=== PATIENT | female | born 1980 | race Caucasian/White ===

== ENCOUNTER 2019-11-27 16:56 | Emergency (ER) | payer MEDICARE ==
[~2019-11-27] VITALS: Ht 162.6 cm; Wt 106.0 kg
--- NOTE | 2019-11-27 17:51 | PHYS DOC ---
Past History Past Medical History: Diabetes, Other Additional Past Medical Histor: HLD, multiple groin abcesses Past Surgical History: Other Additional Past Surgical Histo: I and D groin Alcohol Use: Rarely General Adult EDM: Chief Complaint: ABSCESS HPI: HPI: ".. I got this abscess here on my lower abd.. I ve tried to drain it twice.. but is is still there...I have had it there before... Its making my sugars go up...." Patient is a 39 year old female who presents with above hx of an abscess Rt. lower abd. Pt. has a 3 x 3 cm abscess with old scar at same location. Pt. has had repeat I and D of site. Pt. denies any history of immunosuppression. Patient denies any specific ill contacts. No recent travel outside the [place] area. Patient does have history of diabetes. Review of Systems: Review of Systems: Constitutional: Denies fever or chills Eyes: Denies change in visual acuity HENT: Denies nasal congestion or sore throat Respiratory: Denies cough or shortness of breath Cardiovascular: Denies chest pain or edema GI: Denies abdominal pain, nausea, vomiting, bloody stools or diarrhea : Denies dysuria Musculoskeletal: Denies back pain or joint pain Integument: Denies rash Neurologic: Denies headache, focal weakness or sensory changes Endocrine: Denies polyuria or polydipsia Lymphatic: Denies swollen glands Psychiatric: Denies depression or anxiety Heart Score: Risk Factors: Risk Factors: DM, Current or recent (<one month) smoker, HTN, HLP, family history of CAD, obesity. Risk Scores: Score 0 - 3: 2.5% MACE over next 6 weeks - Discharge Home Score 4 - 6: 20.3% MACE over next 6 weeks - Admit for Clinical Observation Score 7 - 10: 72.7% MACE over next 6 weeks - Early Invasive Strategies Family History: Family History: DM Current Medications: Current Meds: See Nurse for Home Meds. Allergies: Allergies: Allergies Coded Allergies Type Severity Reaction Last Updated Verified Penicillins Allergy Mild Rash 11/27/19 Yes Sulfa (Sulfonamide Antibiotics) Allergy Mild Rash 11/27/19 Yes Physical Exam: PE: Constitutional: moderate acute distress, non-toxic appearance. [] HENT: Normocephalic, atraumatic, bilateral external ears normal, oropharynx moist, no oral exudates, nose normal. [] Eyes: PERRLA, EOMI, conjunctiva normal, no discharge. [] Neck: Normal range of motion, no tenderness, supple, no stridor. [] Cardiovascular:Heart rate regular rhythm, no murmur [] Lungs & Thorax: Bilateral breath sounds clear to auscultation [] Abdomen: Bowel sounds normal, soft, right lower quadrant skin abscess and tenderness, no masses, no pulsatile masses. [] Skin: Warm, dry, no erythema, no rash. [] Back: No tenderness, no CVA tenderness. [] Extremities: No tenderness, no cyanosis, no clubbing, ROM intact, no edema. [] Neurologic: Alert and oriented X 3, normal motor function, normal sensory funct ion, no focal deficits noted. [] Psychologic: Affect anxious, judgement normal, mood normal. [] Current Patient Data: Vital Signs: Vital Signs Date Time Temp Pulse Resp B/P (MAP) Pulse Ox O2 Delivery O2 Flow Rate FiO2 11/27/19 17:25 98.2 86 18 150/84 (106) 100 Room Air EKG: EKG: [] Radiology/Procedures: Radiology/Procedures: [] Course & Med Decision Making: Course & Med Decision Making Pertinent Labs and Imaging studies reviewed. (See chart for details) Procedure: Incision and Drainage. - Prep with Betadine. Stick with 15 blade and remove 10 cc of purulent pus.. Septations broken down with Q-tip. Pt. to take Clindamycin 300 three times a day, with Flagyl 500 three times a day. Tylenol and Ibuprofen for pain. Irrigated abscess with warm normal saline 4 x day. Polysporin topically after irrigation. Vicoprofen for marked pain up 4 x day. Follow up with primary. Monitor site closely. May need full surgical excision of site. Must get glucose down to increase healing. Return if any concerns. Impression: 1. Abscess/ Cellulitis 2. DM [] Kelli Disclaimer: Kelli Disclaimer: This electronic medical record was generated, in whole or in part, using a voice recognition dictation system. Departure Departure: Disposition: 01 HOME/RESIDENCE PRIOR TO ADM Condition: STABLE Referrals: JIGNESH SANCHEZ MD (PCP) Scripts Clindamycin Hcl (CLINDAMYCIN HCL) 300 Mg Capsule 300 MG PO TID for abscess for 10 Days, #30 CAP Prov: MARCK SHAFFER MD 11/27/19 Metronidazole (FLAGYL) 500 Mg Tablet 500 MG PO TID for abscess for 10 Days, #30 TAB Prov: MARCK SHAFFER MD 11/27/19 Hydrocodone/Ibuprofen (HYDROCODONE-IBUPROFEN 7.5-200 ) 1 Each Tablet 1 TAB PO PRN Q6HRS PRN for PAIN, #30 TAB 0 Refills Prov: MARCK SHAFFER MD 11/27/19 Justification of Admission: Justification of Admission: Justification of Admission Dx: N/A Dragruperto Disclaimer This chart was dictated in whole or in part using Voice Recognition software in a busy, high-work load, and often noisy Emergency Department environment. It may contain unintended and wholly unrecognized errors or omissions. MARCK SHAFFER MD Nov 27, 2019 17:50
[2019-11-27] MEDS ORDERED: MORPHINE SULFATE 10 MG/ML SYRINGE. ONE (17:55)
[2019-11-27] MEDS ORDERED: cefTRIAXone IM 1 GM VIAL IM ONE (18:00)
[2019-11-27] MEDS ORDERED: CLINDAMYCIN HCL 150 MG CAPSULE PO ONE (18:00)
[2019-11-27] MEDS ORDERED: metroNIDAZOLE 500 MG TABLET PO ONE (18:00)
[2019-11-27] MEDS ORDERED: METR500T PO (18:13)
[2019-11-27] MEDS ORDERED: CLIN300C8 PO (18:13)
[2019-11-27] MEDS ORDERED: HYDR-1179 PO (18:13)
[2019-11-27] MEDS ORDERED: ONDANSETRON ODT 4 MG TAB.RAPDIS ONE (18:14)
[2019-11-27] MEDS ORDERED: ONDANSETRON ODT 4 MG TAB.RAPDIS PO ONE (18:15)
[2019-11-27] MEDS ORDERED: MORPHINE SULFATE 10 MG/ML SYRINGE. SQ ONE (18:30)
[2019-11-27 18:40] VITALS: BP 137/87
== END 2019-11-27 18:51 | disposition home or self-care (01) ==
LOC: ER 16:56
DX: L02.211 Cutaneous abscess of abdominal wall (principal); E11.9 Type 2 diabetes mellitus without complications; Z88.0 Allergy status to penicillin; Z88.2 Allergy status to sulfonamides
CPT/HCPCS: 10060; 96372; 99284; J0696; J2270; Q0162

== ENCOUNTER 2020-11-06 19:31 | Emergency (ER) | payer MEDICARE ==
[~2020-11-06] VITALS: Ht 172.7 cm; Wt 97.1 kg
[~2020-11-06 19:31] MED LIST: CLIN300C9 PO; HYDR-1179 PO; METR500T PO
[2020-11-06] MEDS ORDERED: KETOROLAC 60 MG/2 ML VIAL. IM ONE (20:30)
[2020-11-06] MEDS ORDERED: ORPHENADRINE CITRATE 60 MG/2 ML VIAL. IM ONE (20:30)
[2020-11-06] MEDS ORDERED: HYDR-1179 PO (21:11)
[2020-11-06] MEDS ORDERED: MORPHINE SULFATE 10 MG/ML SYRINGE. SQ ONE (21:15)
--- NOTE | 2020-11-06 21:17 | PHYS DOC ---
Past History Past Medical History: Diabetes, Other Additional Past Medical Histor: HLD, multiple groin abcesses, staph infection Past Surgical History: Other Additional Past Surgical Histo: I and D groin Alcohol Use: Rarely General Adult EDM: Chief Complaint: UPPER EXTREMITY PAIN HPI: HPI: ".. I was mowing the grass yesterday.. it was too wet.. and too high... and I was using a push mower.. and now my muscle are all inflamed... I just over did...".. " I just need some better pain coverage...for the muscle spasms.." Patient is a 40 year old female who presents with trapezius, mid back pain and muscle spasm after mowing the yard yesterday. Patient pain is primary in right trapezius. Does have obvious muscle spasms at this location. No history of trauma other than the overuse during mowing the yard yesterday. Patient denies any chest pain or dyspnea. Patient denies any recent travel outside the [facility] area. Patient denies any specific ill contacts. Patient denies any history of immunosuppression. Patient normally follows with .. Review of Systems: Review of Systems: Constitutional: Denies fever or chills Eyes: Denies change in visual acuity HENT: Denies nasal congestion or sore throat Respiratory: Denies cough or shortness of breath Cardiovascular: Denies chest pain or edema GI: Denies abdominal pain, nausea, vomiting, bloody stools or diarrhea : Denies dysuria Musculoskeletal: Complains of trapezius and mid back pain and muscle spasms . Integument: Denies rash Neurologic: Denies headache, focal weakness or sensory changes Endocrine: Denies polyuria or polydipsia Lymphatic: Denies swollen glands Psychiatric: Denies depression or anxiety Family History: Family History: Noncontributory to presentation Current Medications: Current Meds: Current Medications Medications (Trade) Dose Ordered Sig/Alicia Start Time Stop Time Status Last Admin Dose Admin Ketorolac Tromethamine (Toradol Im) 60 mg 1X ONCE 11/06/20 20:30 11/06/20 20:33 DC Morphine Sulfate (Morphine 10mg Syringe) 10 mg 1X ONCE 11/06/20 21:15 11/06/20 21:16 Orphenadrine Citrate (Norflex) 60 mg 1X ONCE 11/06/20 20:30 11/06/20 20:33 DC Allergies: Allergies: Allergies Coded Allergies Type Severity Reaction Last Updated Verified Penicillins Allergy Mild Rash 11/06/20 Yes Sulfa (Sulfonamide Antibiotics) Allergy Mild Rash 11/06/20 Yes Physical Exam: PE: Constitutional: Moderate acute distress, non-toxic appearance. [] HENT: Normocephalic, atraumatic, bilateral external ears normal, oropharynx m oist, no oral exudates, nose normal. [] Eyes: PERRLA, EOMI, conjunctiva normal, no discharge. [] Neck: Normal range of motion, no tenderness, supple, no stridor. [] Cardiovascular:Heart rate regular rhythm, no murmur []. The monitor shows a normal sinus rhythm. Lungs & Thorax: Bilateral breath sounds equal apex on auscultation [] Abdomen: Bowel sounds normal, soft, no tenderness, no masses, no pulsatile masses. Old scars Skin: Warm, dry, no erythema, no rash. [] Back: Muscle spasms in right trapezius generalized muscle tenderness on palpation of bilateral trapezius and mid back area. No midline tenderness, no CVA tenderness. [] Extremities: No tenderness, no cyanosis, no clubbing, ROM intact, no edema. No cording appreciated Neurologic: Alert and oriented X 3, normal motor function, normal sensory function, no focal deficits noted. [] DTRs +2 patella and brachial. Psychologic: Affect anxious, judgement normal, mood normal. [] Current Patient Data: Vital Signs: Vital Signs Date Time Temp Pulse Resp B/P (MAP) Pulse Ox O2 Delivery O2 Flow Rate FiO2 11/06/20 19:49 99.3 113 18 123/90 (101) 93 EKG: EKG: Declined by patient [] Radiology/Procedures: Radiology/Procedures: Declined by patient [] Heart Score: C/O Chest Pain: N/A Risk Factors: Risk Factors: DM, Current or recent (<one month) smoker, HTN, HLP, family history of CAD, obesity. Risk Scores: Score 0 - 3: 2.5% MACE over next 6 weeks - Discharge Home Score 4 - 6: 20.3% MACE over next 6 weeks - Admit for Clinical Observation Score 7 - 10: 72.7% MACE over next 6 weeks - Early Invasive Strategies Course & Med Decision Making: Course & Med Decision Making Pertinent Labs and Imaging studies reviewed. (See chart for details) Patient declined labs. Patient requests to be treated clinically Patient use ice packs at least 4 times a day and gentle massage. After 3 days may use moist heat. Take Tylenol and ibuprofen for pain. For marked pain may take Vicoprofen up to 4 times a day. Return if any concerns. Follow-up primary care. Impression: 1. Muscle Spasm 2. Overuse Syndrome [] Kelli Disclaimer: Kelli Disclaimer: This electronic medical record was generated, in whole or in part, using a voice recognition dictation system. Departure Departure: Impression: Primary Impression: Muscle spasm Disposition: HOME / SELF CARE / HOMELESS Condition: GUARDED Patient Instructions: Muscle Strain, [id number], Musculoskeletal Pain Additional Instructions: Ice packs as needed. Massage. Take meds as previously directed. May ad Vicoprofen up 4 x day. Follow up with primary. Return if any concerns. Scripts Hydrocodone/Ibuprofen (HYDROCODONE-IBUPROFEN 7.5-200 ) 1 Each Tablet 1 TAB PO PRN Q6HRS PRN for PAIN, #30 TAB 0 Refills Prov: MARCK SHAFFER MD 11/06/20 Kelli Disclaimer This chart was dictated in whole or in part using Voice Recognition software in a busy, high-work load, and often noisy Emergency Department environment. It may contain unintended and wholly unrecognized errors or omissions. MARCK SHAFFER MD November 06, 2020 21:17
[2020-11-06 21:45] VITALS: BP 102/56
== END 2020-11-06 21:45 | disposition home or self-care (01) ==
LOC: ER 19:31
DX: M70.88 Other soft tissue disorders related to use, overuse and pressure other site (principal); M62.830 Muscle spasm of back; M54.89 Other dorsalgia; E11.9 Type 2 diabetes mellitus without complications; E78.5 Hyperlipidemia, unspecified; Z88.0 Allergy status to penicillin; Z88.2 Allergy status to sulfonamides; Y93.89 Activity, other specified
CPT/HCPCS: 96372; 99284; J1885; J2270; J2360

== ENCOUNTER 2020-11-07 15:26 | Inpatient (IN) | payer MEDICARE ==
[~2020-11-07] VITALS: Ht 172.7 cm; Wt 91.8 kg
[2020-11-07] MEDS ORDERED: diazePAM 5 MG TABLET. PO ONE (15:45)
[2020-11-07] MEDS ORDERED: methylPREDNISolone ACETATE 80 MG/ML VIAL. IM ONE (15:45)
[2020-11-07] MEDS ORDERED: HYDROmorphone PF 1 MG/ML DISP.SYRIN IM ONE (15:45)
--- NOTE | 2020-11-07 16:02 | PHYS DOC ---
Past History Past Medical History: Anxiety, Diabetes, Other Additional Past Medical Histor: HLD, multiple groin abcesses, staph infection (ELÍAS RENEE APRN) Past Surgical History: Other Additional Past Surgical Histo: I and D groin (ELÍAS RENEE APRN) Alcohol Use: Rarely (ELÍAS RENEE APRN) Adult General Chief Complaint Chief Complaint: UPPER EXTREMITY PAIN HPI HPI Patient is a 40-year-old female presents to the emergency department complaining of severe trapezius, mid back pain and muscle spasms ongoing from yesterday. Patient states she was seen here last night and was treated with pain medications and muscle relaxers which helped some was sent home with a prescription for pain medications, states she has been taking them as directed and her pain has returned to a 10/10 pain on a 1-10 pain scale. Patient reports her pain exacerbated while mowing the lawn yesterday noting muscle spasms severe in the right upper trapezius area that has now traveled to most of her mid and upper back. Patient states she has not had this happen to her before. Patient denies history of trauma "states all she did was mowing the lawn yesterday. Pat samy denies loss of bowel or bladder control, denies any numbness or tingling to her buttocks or perineal area. Patient also complains of a spider bite to her buttocks on the lower left from a week ago stating she seen urgent care yesterday prior to arrival to the ER for her back spasms and was given 10 mg Flexeril prescription and a prescription for Bactrim DS, patient states they did not drain her spider bite abscess, and fears it may need drained today. (ELÍAS RENEE APRN) Review of Systems Review of Systems 14 body systems of review of systems have been reviewed. See HPI for pertinent positives and negative responses, otherwise all other systems are negative, nonpertinent or noncontributory. (ELÍAS RENEE APRN) Current Medications Current Medications Current Medications Medications (Trade) Dose Ordered Sig/Alicia Start Time Stop Time Status Last Admin Dose Admin Diazepam (Valium) 10 mg 1X ONCE 11/07/20 15:45 11/07/20 15:46 UNV Hydromorphone HCl (Dilaudid) 1 mg 1X ONCE 11/07/20 15:45 11/07/20 15:46 UNV Methylprednisolone Acetate (DEPO-Medrol IM) 80 mg 1X ONCE 11/07/20 15:45 11/07/20 15:46 UNV (ELÍAS RENEE APRN) Allergies Allergies Allergies Coded Allergies Type Severity Reaction Last Updated Verified Penicillins Allergy Mild Rash 11/06/20 Yes Sulfa (Sulfonamide Antibiotics) Allergy Mild Rash 11/06/20 Yes (ELÍAS RENEE APRN) Physical Exam Physical Exam Constitutional: Well developed, well nourished, patient in moderate acute distress rocking back and forth in bed during examination, non-toxic appearance. HENT: Normocephalic, atraumatic. Eyes: Conjunctiva normal, no discharge, patient tracking normally Neck: Normal range of motion, no tenderness, supple, no stridor. No meningismus signs, no nuchal rigidity appreciated. Cardiovascular:Heart rate regular rhythm, no murmur, heart sounds S1-S2 to auscultation. Lungs & Thorax: Bilateral diminished all lung brock, tachypneic. Skin: Warm, diaphoretic, no erythema, no rash. 2 cm in diameter erythematous induration of left lower buttock with 1 cm in diameter dark skin lesion nondraining Back: No CVA tenderness of the left or right, muscle tenderness to the muscular structures of the thoracic area of back up to bilateral trapezius muscles with marked muscle spasm in the right trapezius area, no midline spinal tenderness, no crepitus appreciated, no bruising or areas of ecchymosis appreciated, skin of the back is intact. Extremities: No tenderness, no cyanosis, no clubbing, ROM intact, no edema. Except for right upper extremity forearm and hand swollen with red nonraised erythematous rash to forearm, there is no lymphangitis appreciated, patient states this has been that way for a long time, unable to discern a certain time period Of the year it started. Neurologic: Alert and oriented X 3, normal motor function, normal sensory function, no focal deficits noted. Psychologic: Affect normal, judgement normal, mood normal. (ELÍAS RENEE APRN) Physical Exam Constitutional: Well developed, well nourished, uncomfortable, non-toxic appearance HENT: Normocephalic, atraumatic Eyes: Conjunctiva normal, no discharge Neck: Normal range of motion, supple, no meningeal signs Lungs & Thorax: No respiratory distress, equal chest rise and fall Skin: Warm, dry, no erythema, no rash Extremities: Right forearm mild edema with erythema noted to anterior aspect, tenderness with any palpation, increased warmth noted, no fluctuance appreciated Neurologic: Alert and oriented X 3, no focal deficits noted Psychologic: Affect normal, judgment normal (ELÍAS MARIEE DO) Current Patient Data Vital Signs Vital Signs Date Time Temp Pulse Resp B/P (MAP) Pulse Ox O2 Delivery O2 Flow Rate FiO2 11/07/20 15:28 98.0 131 20 148/84 (105) 98 Room Air (ELÍAS RENEE APRN) EKG EKG EKG performed at 1641 by house respiratory therapist shows a sinus tachycardia without other ectopy heart rate 137 bpm MA interval 0.132, QTc interval 0.442, no acute STEMI, no ACS, no acute ischemia appreciated, EKG interpreted by ED attending physician Dr. Mariee. (ELÍAS RENEE APRN) Radiology/Procedures Radiology/Procedures PATIENT: TOPHER BARON ACCOUNT: [id number] : 1980 LOCATION: ER AGE: 40 SEX: F EXAM STATUS: REG ER ORD. PHYSICIAN: ELÍAS RENEE APRN REASON: ELEVATED DDIMER, SHORT OF BREATH PROCEDURE: CT ANGIOGRAPHY CHEST CTA CHEST History: Shortness of breath Technique: CT of the chest was performed with intravenous contrast. PE protocol. Maximum intensity projection coronal and sagittal reconstructions were performed. Exposure: One or more of the following individualized dose reduction techniques were utilized for this examination: 1. Automated exposure control 2. Adjustment of the mA and/or kV according to patient size 3. Use of iterative reconstruction technique. Comparison: None Findings: Chest: Degraded evaluation of pulmonary arteries due to contrast bolus timing. No definite central pulmonary embolus. Evaluation for segmental and subsegmental pulmonary emboli is degraded. No aortic aneurysm or dissection. Small mediastinal lymph nodes. Asymmetric right-sided septal thickening with groundglass opacities. Scattered linear atelectasis bilaterally. Right upper lobe bilobed nodular opacity measures 1.4 x 0.7 cm (series 4 image 40). 2 mm right lower lobe pulmonary nodule (image 69). Upper abdomen: Hepatomegaly. Bones: No pathologic osseous lesions. Impression: 1. Degraded evaluation of the pulmonary arteries due to contrast bolus timing. If persistent clinical concern, recommend repeat imaging or VQ scan to further assess. 2. Right-sided septal thickening with ground glass opacities, may represent asymmetric pulmonary edema or infection. Recommend follow-up to ensure resolutio n. 3. Bilobed right upper lobe nodular opacity. Recommend attention on follow-up. Electronically signed by: Hawk Schmitz DO (11/07/2020 6:24 PM) [facility] DICTATED AND SIGNED BY: HAWK SCHMITZ DO DATE: 11/07/201815 CC: ELÍAS RENEE APRN; JIGNESH SANCHEZ MD; ELÍAS MARIEE DO ~MTH0 0 PATIENT: TOPHER BARON ACCOUNT: [id number] : 1980 LOCATION: ER AGE: 40 SEX: F EXAM STATUS: REG ER ORD. PHYSICIAN: ELÍAS RENEE APRN REASON: SHORT OF BREATH PROCEDURE: CHEST PA & LATERAL EXAM: Chest, 2 views. HISTORY: Short of breath. COMPARISON: None. FINDINGS: 2 frontal views and a lateral view of the chest are obtained. The initial image demonstrates decreased lung volumes with associated increased interstitial opacity likely due to atelectasis and vascular crowding. The second image demonstrates improved aeration with suspected focal infiltrate or scarring within the right upper lobe. There is elevation of the right hemidiaphragm. The heart is normal in size. There is no consolidation, pleural effusion or pneumothorax. IMPRESSION: 1. Suspected focal infiltrate or scarring within the right upper lobe. Follow-up to confirm resolution or stability. 2. Mild elevation of the right hemidiaphragm. Electronically signed by: Yudith Richard MD (11/07/2020 5:03 PM) [id number] DICTATED AND SIGNED BY: YUDITH RICHARD MD DATE: 11/07/20 170 CC: ELÍAS RENEE APRN; JIGNESH SANCHEZ MD ~MTH0 0 (ELÍAS RENEE APRN) Heart Score C/O Chest Pain: No Risk Factors: Risk Factors: DM, Current or recent (<one month) smoker, HTN, HLP, family history of CAD, obesity. Risk Scores: Risk Factors: DM, Current or recent (<one month) smoker, HTN, HLP, family hist ory of CAD, obesity. (ELÍAS RENEE APRN) Course & Med Decision Making Course & Med Decision Making Pertinent Labs and Imaging studies reviewed. (See chart for details) 40-year-old female presents emergency department with chief complaint mid upper back pain since mowing the lawn Friday. Patient was seen yesterday and treated with pain medications and muscle relaxers, patient states that she felt okay when she went home, is back for evaluation of return of acute pain. Physical examination concerning for respiratory process, patient is diaphoretic, patient states that she has been this way for some time now stating that her sweatiness comes and goes, patient states that her breathing problem is because she hurts so bad in her upper back. Patient states "it is not from a lungs "offered imaging and labs, patient refused at this time. Patient states she just wants pain medications. Patient is tachycardic, however patient does complain of acute pain with injury and muscle spasm of the upper back, will give pain medication and monitor vital signs. Patient given Valium p.o., Dilaudid IM, Depo-Medrol 80 mg IM. After period of time reevaluation of the patient, patient is still tachycardic, patient states her pain is down to about 8/10. Discussed with patient concerns about remaining tachycardia after given pain medications and having some pain control, patient is to cardiorespiratory work-up with lab draw. Discussed with patient finding of elevated blood sugar greater than 500, patient states "I am a bad bad diabetic, I am supposed to take two different types of insulins but I just do not "discussed with patient will give a liter of normal saline, 10 units regular insulin IV, patient complaining of anxiety problems, will give 1 mg Ativan IV. Upon reevaluation of the patient, patient remains tachycardic, most likely related to dehydration, will order an additional liter of normal saline. Patient is D-dimer elevated, will order CT angio chest, patient now reveals that her left arm suddenly became swollen while she was mowing the lawn, patient states that she wants pain control for her upper back and not to have things focused on other parts of her body. Related to patient's presentation and not being forthright of symptoms, physical presentation, vital signs, and lab work returning showing infectious process, a skin assessment performed with TOMMY parry was done, there were no target spot type rashes on body. The abscess lesion on left buttocks consistent with brown recluse type spider bite. There is no fluctuance to the erythematous area, there was no drainage from the central eschar colored 1 cm central area. Patient CT angio chest concerning for atypical pneumonia, patient's lactic acid above 5, will diagnosis septic shock, patient has ready received fluid resuscitation bolus, will give 1 g of vancomycin for skin cellulitis, 2 g Rocephin IV along with 500 mg Zithromax IV for atypical pneumonia, will order Covid [address] angio results of patient presentation, however patient did have COVID-19 vaccine in August 2 dose Pfizer type. Patient's repeat bedside blood sugar 390. Discussed with patient recommended admission for ongoing evaluation and treatment of symptoms, patient is amenable to this plan. Called and discussed patient case with inpatient management physician Dr. Dave who has agreed to accept patient for full admission to the med telemetry unit diagnosis septic shock, elevated blood sugars, PUI, cellulitis, atypical pneumonia. Dr. Dave has assumed patient care at this time. (ELÍAS RENEE APRN) Course & Med Decision Making Given CT findings, cannot fully exclude COVID-19. Patient does reports COVID vaccination with Pfizer vaccination with 2nd dose received in August 2020. While COVID less likely will test given admission. COVID-19 CRITERIA: The patient was evaluated during the global COVID-19 pandemic, and that diagnosis was suspected/considered upon their initial presentation. Their evaluation, treatment and testing was consistent with current guidelines for patients who present with complaints or symptoms that may be related to COVID-19. (ELÍAS MARIEE DO) Dragon Disclaimer Dragon Disclaimer This electronic medical record was generated, in whole or in part, using a voice recognition dictation system. (ELÍAS RENEE APRN) Departure Departure: Impression: Primary Impression: Septic shock Additional Impressions: Person under investigation for COVID-19 Atypical pneumonia Cellulitis Uncontrolled diabetes mellitus Pain and swelling of right forearm Bandemia Disposition: ADMITTED INPATIENT (Admit to med telemetry unit full admission Dr. Dave.) Admitting Physician: Kolby Dave (ELÍAS RENEE APRN) Condition: GUARDED Referrals: JIGNESH SANCHEZ MD (PCP) Sepsis Assessment Date and Time of Assessment Date: November 07, 2020 Time: 19:08 (ELÍAS RENEE APRN) Fluid Challenge: Is the fluid challenge complet: Yes IBW Target Volume Used: Yes BMI > 30: Yes (ELÍAS RENEE APRN) Vital Signs Vital Signs Vital Signs Date Time Temp Pulse Resp B/P (MAP) Pulse Ox O2 Delivery O2 Flow Rate FiO2 11/07/20 18:30 126 20 95 Room Air 11/07/20 17:25 142/80 (100) 11/07/20 15:28 98.0 Temperature Source: Oral (ELÍAS RENEE APRN) Respirations Respiratory Effort: Shortness of air Respiratory Pattern: Tachypnea (ELÍAS RENEE APRN) Cardiovascular Pulse Rhythm: Irregular (TACHYCARDIA) Heart: S1 and S2 normal (ELÍAS RENEE APRN) Lung Sounds Breath Sounds: Diminished (ELÍAS RENEE APRN) Capillary Refill Capillary Refill: Rt Hand < 3 seconds (ELÍAS RENEE APRN) Peripheral Pulse Pulse Location: Radial Pulse Strength: Normal (2+) Pulse Assessment Method: Palpation (ELÍAS RENEE APRN) Integumentary Skin: Warm, Dry, Rash Skin Moisture: Diaphoretic Skin Turgor: Normal Skin Color: warm, dry, edema, erythema Fingernail Color: WNL (ELÍAS RENEE APRN) Critical Care Time Critical care time was 30 minutes which includes time at bedside, spent in discussion of patient's care with specialists and/or family members, with interpretation of laboratory and/or radiological studies and is exclusive of procedures. (ELÍAS MARIEE DO) Attending Signature Attending Signature I have personally interviewed and examined the patient. All charts, labs, and imaging studies were reviewed. I agree with the PA/TUNNEL INSPECTOR's findings, exam, and plan. (ELÍAS MARIEE DO) COVID-19 Assessment COVID-19 Patient Risks: Age 65 or older: No Sign of co-morbidity: Yes Exp to person + for COVID: No Exp to PUI: No Travel from affected area: No Lower respiratory symptoms: No Fever: No Other: Yes (ELÍAS MARIEE DO) PPE Use: Full PPE with N95 mask or PAPR: Yes (ELÍAS MARIEE DO) Problem Qualifiers Additional Impressions: Cellulitis Site of cellulitis: buttock Qualified Codes: L03.317 - Cellulitis of buttock Uncontrolled diabetes mellitus Diabetes mellitus type: type 2 Glycemic state: with hyperglycemia Qualifi ed Codes: E11.65 - Type 2 diabetes mellitus with hyperglycemia ELÍAS RENEE APRN November 07, 2020 16:02 ELÍAS MARIEE DO November 07, 2020 20:16
[2020-11-07 16:58] LABS: BASO # 0.1 x10^3/uL (0.0-0.2); BASO % 0 % (0-3); EOS % 0 % (0-3); HEMATOCRIT 47.8 % (36.0-47.0); LYMPH # 0.6 x10^3/uL (1.0-4.8); LYMPH % 3 % (24-48); MEAN CORPUSCULAR HEMOGLOBIN 32 pg (25-35); MEAN CORPUSCULAR HGB CONC 34 g/dL (31-37); MEAN CORPUSCULAR VOLUME 95 fL (79-100); MONO % 6 % (0-9); NEUT # 15.3 x10^3uL (1.8-7.7); NEUT % 91 % (31-73); PLATELET COUNT 225 x10^3/uL (140-400); RED BLOOD COUNT 5.02 x10^6/uL (3.50-5.40); RED CELL DISTRIBUTION WIDTH 12.8 % (11.5-14.5); WHITE BLOOD COUNT 16.9 x10^3/uL (4.0-11.0)
[2020-11-07] MEDS ORDERED: IV NORMAL SALINE 1,000ML 1,000 ML IV ONE ×2 (17:00→17:30)
--- NOTE | 2020-11-07 17:05 | RAD ---
EXAM: Chest, 2 views. HISTORY: Short of breath. COMPARISON: None. FINDINGS: 2 frontal views and a lateral view of the chest are obtained. The initial image demonstrate s decreased lung volumes with associated increased interstitial opacity likely due to atelectasis and vascular crowding. The second image demonstrates improved aeration with suspected focal infiltrate o r scarring within the right upper lobe. There is elevation of the right hemidiaphragm. The heart is n ormal in size. There is no consolidation, pleural effusion or pneumothorax. IMPRESSION: 1. Suspected focal infiltrate or scarring within the right upper lobe. Follow-up to confirm resolutio n or stability. 2. Mild elevation of the right hemidiaphragm. Electronically signed by: Yudith Bejarano MD (11/07/2020 5:03 PM) [id number]
--- NOTE | 2020-11-07 17:10 | EKG ---
[address] [address] Test Date: 2020-11-07 Test Time: 16:41:16 Pat Name: TOPHER BARON Department: Room: Gender: F Pulp Mixer: JENNIFER : 1980 Requested By: ELÍAS RENEE Order Number: [id number] Reading MD: Measurements Intervals Morton Rate: 137 P: -14 GA: 132 QRS: -29 QRSD: 92 T: 9 QT: 292 QTc: 442 Interpretive Statements SINUS TACHYCARDIA LEFT ATRIAL ABNORMALITY LEFTWARD AXIS R-S TRANSITION ZONE IN V LEADS DISPLACED TO THE LEFT ABNORMAL ECG RI6.02 No previous ECG available for comparison
[2020-11-07 17:24] LABS: ALBUMIN 3.5 g/dL (3.4-5.0); ALBUMIN/GLOBULIN RATIO 0.8 (1.0-1.7); CALCIUM 9.6 mg/dL (8.5-10.1); CREATININE 1.2 mg/dL (0.6-1.0); POTASSIUM 4.8 mmol/L (3.5-5.1); TOTAL BILIRUBIN 3.3 mg/dL (0.2-1.0); TOTAL PROTEIN 7.8 g/dL (6.4-8.2)
[2020-11-07] MEDS ORDERED: INSULIN REGULAR 100 UNIT/ML 3ML VIAL. IV ONE (17:30)
[2020-11-07] MEDS ORDERED: IOHEXOL 350 MG/ML 100 ML VIAL. IV ONE (18:00)
[2020-11-07] MEDS ORDERED: VANCOMYCIN PER PHARMACY MC PRN (18:15)
--- NOTE | 2020-11-07 18:26 | RAD ---
CTA CHEST History: Shortness of breath Technique: CT of the chest was performed with intravenous contrast. PE protocol. Maximum intensity pr ojection coronal and sagittal reconstructions were performed. Exposure: One or more of the following individualized dose reduction techniques were utilized for thi s examination: 1. Automated exposure control 2. Adjustment of the mA and/or kV according to patient size 3. Use of iterative reconstruction technique. Comparison: None Findings: Chest: Degraded evaluation of pulmonary arteries due to contrast bolus timing. No definite central pu lmonary embolus. Evaluation for segmental and subsegmental pulmonary emboli is degraded. No aortic an eurysm or dissection. Small mediastinal lymph nodes. Asymmetric right-sided septal thickening with groundglass opacities. Scattered linear atelectasis noris aterally. Right upper lobe bilobed nodular opacity measures 1.4 x 0.7 cm (series 4 image 40). 2 mm right lower lobe pulmonary nodule (image 69). Upper abdomen: Hepatomegaly. Bones: No pathologic osseous lesions. Impression: 1. Degraded evaluation of the pulmonary arteries due to contrast bolus timing. If persistent clinica l concern, recommend repeat imaging or VQ scan to further assess. 2. Right-sided septal thickening with ground glass opacities, may represent asymmetric pulmonary baron ma or infection. Recommend follow-up to ensure resolution. 3. Bilobed right upper lobe nodular opacity. Recommend attention on follow-up. Electronically signed by: Hawk Schmitz DO (11/07/2020 6:24 PM) [facility]
[2020-11-07] MEDS ORDERED: VANCOMYCIN 2 GM in IV NORMAL SALINE 500ML 500 ML IV ONE (18:45)
[2020-11-07] MEDS ORDERED: AZITHROMYCIN 500 MG in IV NORMAL SALINE 250ML 250 ML IV ONE (19:00)
[2020-11-07 19:01] LABS: % BANDS 24 % (0-9); % EOS 1 % (0-5); % LYMPHS 1 % (24-48); % METAS 9 % (0-0); % MONOS 7 % (0-10); % MYELOS 2 % (0-0); % SEGS 56 % (35-66)
[2020-11-07 19:06] LABS: PLT ESTIMATE ADEQUATE (ADEQUATE)
[2020-11-07] MEDS ORDERED: IV NORMAL SALINE 100ML 100 ML ONE (19:33)
[2020-11-07] MEDS ORDERED: ENOXAPARIN ** NOTE DOSE ** SYRINGE SQ ONE (20:00)
[2020-11-07] MEDS ORDERED: ONDANSETRON PF 4 MG/2 ML VIAL. IVP PRN (20:00)
[2020-11-07] MEDS ORDERED: MORPHINE SULFATE 4 MG/ML DISP.SYRIN. IVP PRN (20:00)
[2020-11-07] MEDS ORDERED: DEXTROSE 50% 25 GM / 50ML DISP.SYRIN. IV PRN (20:00)
[2020-11-07] MEDS ORDERED: MORPHINE SULFATE 10 MG/ML SYRINGE. IV ONE (20:00)
[2020-11-07] MEDS ORDERED: INSULIN GLARGINE SYRINGE. SQ SCH (21:00)
[2020-11-07 21:07] VITALS: BP 132/83
[2020-11-07] MEDS: IV NORMAL SALINE 1,000ML 1,000 ML IV SCH (21:17)
--- NOTE | 2020-11-07 22:35 | NUR ---
Pharmacy Vancomycin Dosing Note S:Consulted to monitor and dose vancomycin started 11/07/20. O:TOPHER BARON is a 40 year old F with Cellulitis, . Height: 5 feet, 8 inches Weight: 91.8 kg [place] Body Weight: Adjusted Body Weight: Dosing Weight: Actual Other Antibiotics: ROCEPHIN X1 AND ZITHROMAX IV X1 IN ED LABS: Last BUN: 11 Last Creatinine: 1.2 Creatinine Clearance: 76.69 Last WBC: 16.9 Vancomycin Dosing: Loading Dose: 2000 mg x1 Dosing Weight: Actual Target Trough: 10-20 A: Based on: Actual weight, renal function, and indication P: 1. Begin Vancomycin 1500 mg IV q12h 2. Follow up Trough level on 11/09/20 at 0530 3. Pharmacy will continue to monitor, follow and adjust therapy as needed. EBER OBRIEN, 11/07/20 [id number]
--- NOTE | 2020-11-07 23:22 | NUR ---
PT ADMITTED TO [facility] VIA EMS ACCOMPANIED BY NURSING PAPER MACHINE OPERATOR. PT WAS ASSISTED X1 TO AMBULATE FROM GURNEY TO BED. PT IS AOX4. PT WAS UNABLE TO PRODUCE HOME MEDICATION LIST. PT STATES "I GO TO [facility] AND THEY WOULD HAVE A LIST OF MY MEDS." PT HAD COMPLAINTS OF PAIN BUT SAID IT IS BETTER AFTER RECEIVING PAIN MEDICATION IN ED. POC WAS DISCUSSED W/ VERBAL UNDERSTANDING FROM PT. CALL LIGHT IN REACH WILL CONTINUE TO MONITOR.
[2020-11-07 23:31] VITALS: BP 109/69
[2020-11-08] MEDS ORDERED: INSULIN LISPRO 300 UNITS/3 ML VIAL. SQ ONE (01:30)
[2020-11-08 04:39] LABS: BILIRUBIN,URINE NEG (NEG); CLARITY,URINE CLEAR; COLOR,URINE YELLOW; GLUCOSE,URINE >=1000 mg/dL (NEG)
[2020-11-08 04:40] LABS: NITRITE,URINE NEG (NEG); RBC,URINE 0 /HPF (0-2); UROBILINOGEN,URINE 0.2 mg/dL (0.2 mg/dL); WBC,URINE 0 /HPF (0-4)
[2020-11-08 04:41] LABS: BACTERIA,URINE MOD /HPF (0-FEW); SQUAMOUS EPITHELIAL CELL,UR OCC /LPF
[2020-11-08] MEDS ORDERED: HYDROmorphone PF 2 MG/ML VIAL IVP PRN (05:00)
[2020-11-08] MEDS: IV NORMAL SALINE 1,000ML 1,000 ML IV SCH (06:00)
[2020-11-08] MEDS ORDERED: VANCOMYCIN 1.5 GM in IV NORMAL SALINE 500ML 500 ML IV SCH (06:00)
[2020-11-08 06:02] VITALS: BP 164/83
[2020-11-08] MEDS ORDERED: INSULIN LISPRO 300 UNITS/3 ML VIAL. SQ SCH ×2 (08:00→12:00)
--- NOTE | 2020-11-08 08:26 | RAD ---
EXAM: Right upper extremity venous Doppler sonogram. HISTORY: Pain and swelling. Elevated d-dimer. TECHNIQUE: Raymond scale and color Doppler sonographic evaluation of the right upper extremity veins wit h spectral waveform analysis was performed. FINDINGS: There is normal color flow, normal compressibility and there are normal spectral waveforms in the upper extremity veins. IMPRESSION: No Doppler evidence of upper extremity venous thrombosis. Electronically signed by: Yudith Bejarano MD (11/08/2020 8:23 AM) [id number]
--- NOTE | 2020-11-08 08:29 | RAD ---
EXAM: Abdomen sonogram. HISTORY: Elevated liver function laboratory values. Pain. TECHNIQUE: Sonographic imaging of the abdomen was performed. COMPARISON: None. FINDINGS: The liver is partially obscured due to patient immobility and respiratory motion. There is echogenic liver parenchyma likely due to hepatic steatosis. The gallbladder is unremarkable. The comm on bile duct is obscured. The right kidney is unremarkable. There is a 3.8 cm anechoic region adjacen t to the splenic hilum which is not well characterize, possibly due to a renal cyst. The spleen is up per normal in size. The pancreas, aorta and vena cava are obscured due to bowel gas and respiratory m otion. IMPRESSION: 1. Hepatic steatosis. 2. Obscured common bile duct and midline structures due to patient respiratory motion. 3. 3.8 cm anechoic region adjacent to the splenic hilum, possibly artifactual or due to a renal cyst. Electronically signed by: Yudith Bejarano MD (11/08/2020 8:27 AM) [id number]
[2020-11-08] MEDS: INSULIN LISPRO 300 UNITS/3 ML VIAL. SQ SCH ×2 (09:15→12:00)
--- NOTE | 2020-11-08 09:22 | HP ---
ADMIT DATE: 11/07/2020 ATTENDING PHYSICIAN: Dr. Amado. CHIEF COMPLAINT: Right arm pain. HISTORY OF PRESENT ILLNESS: The patient is a 40-year-old female with uncontrolled diabetes. Her main problem is pain in the right arm. It is indurated, swollen, erythematous and she has had multiple rounds of outpatient antibiotics. This has not been effective. She was started on intravenous vancomycin. Her sugars were in the four. I do not know what her hemoglobin A1c is. She states that she has not been compliant. She has been an insulin-dependent diabetic since age 14. She had some anxiety along with shortness of breath. Her oxygen saturation is adequate. CT of the chest showed poor inspiratory effort. I do not think she has pneumonia at this time. It was equivocal on the report. She is admitted then for cellulitis, refractory to outpatient care. PAST MEDICAL HISTORY: Significant for type 2 diabetes, insulin-dependent; noncompliance of meds; chronic pain syndrome. She has significant stress and cervical neck muscle spasm. ALLERGIES: SHE HAS ALLERGIES TO SULFA DRUGS AND PENICILLIN, EXACT REACTION IS UNCLEAR. CURRENT MEDICATIONS: Prior to coming in, include Flagyl, hydrocodone and clindamycin. SOCIAL HISTORY: She is a nonsmoker, nondrinker. FAMILY HISTORY: Mom is alive at age 60. Her father killed himself. She is . She works at a local daycare. She has 2 children, ages 19 and 5. REVIEW OF SYSTEMS: Significant for the localized pain. She has trouble sleeping at night. She is under a lot of stress. She is worried about finances and her job. No recent COVID exposures. The pain is an issue. Some nausea and no vomiting. All other systems reviewed and turned to be negative. PHYSICAL EXAMINATION: GENERAL: When I saw her, this is a pleasant young female. VITAL SIGNS: Initial vital signs showed blood pressure of 164/83, pulse is 116 and regular, oxygen saturation 93% on 2 liters. She is afebrile. HEENT: Head is without trauma. Pupils are reactive. Sclerae nonicteric. Oropharynx clear. NECK: Supple. She has significant muscle spasm along the trapezius muscle with multiple trigger points. CARDIOVASCULAR: Showed regular heart tones. No gallops or rubs. LUNGS: Poor inspiratory effort. She is splinting. ABDOMEN: Soft, obese, protuberant. No organomegaly. EXTREMITIES: Show redness and cellulitis of the right arm extending up to her shoulders. There is no open sores identified. SKIN: Warm and dry. NEUROLOGIC: Function focally intact with a very flat affect. PERTINENT LABORATORY STUDIES AND X-RAY STUDIES: As noted. Dopplers of the arm showed no DVT. Hemoglobin on admission was 16.0 g/dL with a white count of 16,900. Nonfasting blood sugar 445. Chemistry panel on admission showed a sodium of 131 mg, potassium 4.8, creatinine is 1.2 mg percent. Admission blood sugar of 565. ASSESSMENT: 1. A 40-year-old female with uncontrolled diabetes. 2. Cellulitis of the right arm. Most likely Staphylococcus infection, refractory to outpatient care. 3. Cervical muscle strain, right trapezius muscle. 4. Frequent lesions on skin due to diabetes. 5. Underlying anxiety with depression. PLAN: 1. Admit to the inpatient unit. 2. Intravenous vancomycin has been started. 3. I have stopped IV fluids. She is swollen and she needs a dose of diuretics. 4. Diabetic diet. 5. Scheduled insulin regimen with 20 units of regular before each meal and 20 units of Lantus at bedtime. I will adjust dose accordingly. 6. Diuresis. 7. Pain control. CHERIE/ROSIE DR: Carlyle TID: [id number]
[2020-11-08 11:48] VITALS: BP 131/90
[2020-11-08 12:38] LABS: BGAS PH 7.42 (7.35-7.45)
--- NOTE | 2020-11-08 12:46 | NUR ---
pt being transferred to [facility], reviewed ABG results with Dr Amado, increased pt oxygen to 4lpm per physician request.
--- NOTE | 2020-11-08 13:33 | DS ---
DATE OF DISCHARGE: 11/08/2020 ATTENDING PHYSICIAN: Dr. Amado FINAL DISCHARGE DIAGNOSES: 1. Cellulitis, right arm. 2. Uncontrolled diabetes. 3. Acute respiratory failure with hypoxemia. 4. Tachycardia secondary to respiratory failure. 5. Type 2 diabetes mellitus. 6. Hepatic steatosis and elevation of bilirubin. 7. Cervical muscle strain, right trapezius muscle. HISTORY AND PHYSICAL: Patient is a 40-year-old female who is a diabetic. She has been noncompliant with her meds. She has significant swelling, erythema of the right arm, resulting in cellulitis. She has been treated with oral antibiotics in the Urgent Care clinic without any improvement. She was admitted then for further treatment and evaluation. PHYSICAL EXAMINATION: Please see the dictated note. PERTINENT LABORATORY AND X-RAY STUDIES: Her admission hemoglobin was 16.0 gram, white count 16,900. Blood sugars over 560, repeat was down to 340 and 284, on sliding scale insulin. Her arterial blood gases showed a pH of 7.42, pCO2 of 27 mmHg and a pO2 of 53 mmHg. IMAGING STUDIES: Upper extremity Doppler showed no clot. Chest x-ray showed elevated hemidiaphragms and poor inspiratory effort. Ultrasound of the liver showed no stones or blockage. She does have hepatic steatosis. Chest CT showed a right-sided septal thickening, degraded evaluation of the pulmonary arteries to contrast bolus timing. They could not determine with complete certainty whether she did not have a blood clot. Followup imaging recommended bilobe right upper nodular opacity. COURSE IN THE HOSPITAL: The patient was admitted to the hospitalist service. I saw her the morning of 11/08. She was fairly stable. She is getting supplemental oxygen, pain meds and IV antibiotics. Swelling had subsided a bit. She had some pain in her neck and arm; however, as the morning progressed, she became significantly dyspneic with exertion and at rest. Persistent sinus tachycardia with a rate in the 130s and 140s. Arterial blood gases was clearly abnormal. I reviewed the chest x-ray and the CT again and certainly at this time, there is some pulmonary process ongoing, whether it is early pneumonia or atelectasis, the persistent hemidiaphragms are a problem as she cannot expand her lungs as well. Therefore, because of her situation, her age and multiple medical issues, it was decided for the patient to be transferred to [facility] where she can have critical care and pulmonary medicine see her for the acute respiratory failure. I spoke with Dr. Regalado who was gracious enough to admit the patient to [facility]. She will be going to their ICU. Therefore, her discharge meds will include vancomycin as ordered, sliding scale insulin 20 units before each meal and 20 units of Lantus at night. Dilaudid 1 mg every 3 hours p.r.n. pain, vancomycin 1.5 g IV b.i.d. She was also given ceftriaxone initially, 1 dose of Lovenox was given in the ED. Her prognosis is guarded. She was discharged then from our hospital to go by ambulance to go to [facility]. Dr. Regalado is the accepting physician. CHERIE/ALEXANDRA DR: Carlyle TID: [id number] CC: NUSRAT REGALADO MD
[2020-11-08] MEDS ORDERED: LACTOBACILLUS RHAMNOSUS GG 1 CAPSULE. PO SCH (21:00)
== END 2020-11-08 14:00 | disposition short-term general hospital (02) | DRG 602 ==
LOC: ER 15:26 → 1 SOUTH 20:01
PROVIDERS: ADMIT Internal Medicine; ATTEND Internal Medicine
DX: L03.113 Cellulitis of right upper limb (principal); J96.01 Acute respiratory failure with hypoxia; L03.317 Cellulitis of buttock; E78.5 Hyperlipidemia, unspecified; F41.8 Other specified anxiety disorders; G89.4 Chronic pain syndrome; K76.0 Fatty (change of) liver, not elsewhere classified; Z20.822 Contact with and (suspected) exposure to COVID-19; E11.65 Type 2 diabetes mellitus with hyperglycemia; S16.1XXA Strain of muscle, fascia and tendon at neck level, initial encounter; W57.XXXA Bitten or stung by nonvenomous insect and other nonvenomous arthropods, initial encounter; Z79.4 Long term (current) use of insulin; Z91.14 Patient's other noncompliance with medication regimen; Z91.19 Patient's noncompliance with other medical treatment and regimen; Y93.89 Activity, other specified; Y92.89 Other specified places as the place of occurrence of the external cause; Y99.8 Other external cause status
CPT/HCPCS: 36415; 71046; 71275; 76700; 80053; 81001; 82010; 82553; 82803; 82947; 83605; 83690; 83930; 84484; 85007; 85025; 85379; 87040; 87077; 87086; 87186; 87205; 87426; 93005; 93971; 96361; 96372; 96374; 96375; J0456; J0696; J1040; J1170; J1650; J1815; J2060; J2270; J3370; J7040; J7050; Q9967; U0003; 99285-25; J7030